=== PATIENT | male | born 1990 | race Caucasian/White ===

== ENCOUNTER 2020-02-19 13:30 | Emergency (ER) | payer SELFPAY ==
[2020-02-19 13:36] VITALS: BP 143/80; PULSE 112; RESP 20; TEMP 36.6; O2SAT 96; BMI 25.8
--- NOTE | 2020-02-19 13:45 | DI.RAD.S_ITS ---
PROCEDURE: XR CHEST 1V INDICATIONS: worsening asthma TECHNIQUE: One view of the chest was acquired. COMPARISON: None. FINDINGS: Surgical changes and devices: None. Lungs and pleura: Lungs are clear. No pleural effusions or pneumothorax. Mediastinum: Mediastinal contours appear normal. Heart size is normal. Bones and chest wall: No suspicious bony lesions. Overlying soft tissues appear unremarkable. IMPRESSION: Normal for age, source of current worsening asthma symptoms is not seen. Dictated by: Radames Velasquez M.D. on 02/19/2020 at 14:02 Approved by: Radames Velasquez M.D. on 02/19/2020 at 14:02
--- NOTE | 2020-02-19 13:51 | ED.SOB ---
HPI - SOB/Dyspnea <BRADLY Felton - Last Filed: 02/19/20 18:24> General Chief Complaint: Shortness of Breath/Dyspnea Stated Complaint: hx of asthma/asthma attack today Time Seen by Provider: 02/19/20 13:35 Source: patient Mode of arrival: Ambulatory Limitations: no limitations History of Present Illness HPI Narrative: 29yo male with a history of asthma and allergies, presents to the emergency department after being referred from the walk-in clinic for worsening wheezing. He takes Advair at home 250mg BID, an allergy pill daily, and his albuterol inhaler. He states the wheezing started a few days ago and has increased. He has used his nebulizer at home, reports using 2 DuoNebs, and has used his inhaler multiple times without significant relief. He states he has an occasional cough when he takes a deep breath. He denies any fevers, chest pain, productive cough, abdominal pain, nausea, vomiting, diarrhea, or any other concerns. Patient denies any contact with persons with confirm COVID-19 cases or any travel. Related Data Home Medications Medication Instructions Recorded Confirmed albuterol sulfate 90 mcg/actuation 1 puff INHALATION Q6H PRN 04/20/19 04/20/19 aerosol inhaler fexofenadine 60 mg tablet 60 mg PO Q12H 04/20/19 04/20/19 fluticasone 100 mcg-salmeterol 50 1 puff INHALATION BID 04/20/19 04/20/19 mcg/dose blistr powdr for inhalation Previous Rx's Medication Instructions Recorded amoxicillin 875 mg-potassium 1 tab PO BID #14 tab 04/20/19 clavulanate 125 mg tablet albuterol sulfate 2 puff INHALATION Q4-6H PRN #8.5 02/19/20 gram albuterol sulfate 2.5 mg INHALATION Q4-6H PRN #15 ml 02/19/20 prednisone 60 mg PO DAILY 5 Days #15 tab 02/19/20 Allergies Allergy/AdvReac Type Severity Reaction Status Date / Time No Known Drug Allergies Allergy Verified 02/19/20 13:46 Review of Systems <BRADLY Felton - Last Filed: 02/19/20 18:24> Review of Systems Narrative: REVIEW OF SYSTEMS: GENERAL: Denies fevers. HENT: No head trauma or hearing loss. EYES: No loss of vision, double vision, eye pain, irritation or discharge. CARDIOVASCULAR: No chest pain or syncope. RESPIRATORY Reports wheezing and shortness of breath, see HPI. GASTROINTESTINAL: No nausea, vomiting, diarrhea, or constipation. MUSCULOSKELETAL: No weakness or injury. INTEGUMENTARY: No rash, lesions, or pruritus. NEURO: No memory loss, or confusion. Patient History <BRADLY Felton - Last Filed: 02/19/20 18:24> Medical History Asthma (Acute) Social History Smoking Status: Former smoker Smoking Status: Former smoker alcohol intake frequency: a few times a week Substance Use Type: does not use Exam <BRADLY Felton - Last Filed: 02/19/20 18:24> Initial Vital Signs Initial Vital Signs: Vital Signs Temperature 97.9 F 02/19/20 13:36 Pulse Rate 112 H 02/19/20 13:36 Respiratory Rate 20 02/19/20 13:36 Blood Pressure 143/80 H 02/19/20 13:36 Pulse Oximetry 96 02/19/20 13:36 PHYSICAL EXAMINATION: GENERAL: Well groomed, alert, and cooperative. Answers questions promptly and appropriately. Vital signs noted. HENT: Normocephalic, atraumatic. Ear canals patent. TMs intact without mucus or erythema. Oropharynx without erythema. Tonsils are not present. EYES: Conjunctiva pink, sclera white, no periorbital swelling. No discharge. CHEST: Normal to inspection and without deformities. CARDIOVASCULAR: S1 and S2 sounds normal. Regular rate and rhythm, no murmurs, clicks, or bruits. RESPIRATORY: Normal respiratory rate, trachea midline, airway patent. No stridor, nasal flaring or accessory muscle use. Able to speak in full sentences. Mild inspiratory and significant expiratory wheezes, occasional dry cough throughout exam. No crackles or rhonchi. Patient is sitting up, leaning forward. Peak flow after treatment was 350. MUSCULOSKELETAL: Normal gait and coordination. Equal tone and mass bilaterally. EXTREMITIES: Moves all extremities. SKIN: Warm, dry, soft, appropriate color for ethnicity. No lesions, rashes, or wounds to visualized areas. NEURO: Alert and Oriented X 3. Good coordination. No ataxia or cognitive issues. PSYCH: Appropriate affect and mood. <Farida Orozco MD - Last Filed: 02/25/20 07:03> Initial Vital Signs Initial Vital Signs: Vital Signs Temperature 97.9 F 02/19/20 13:36 Pulse Rate 112 H 02/19/20 13:36 Respiratory Rate 20 02/19/20 13:36 Blood Pressure 143/80 H 02/19/20 13:36 Pulse Oximetry 96 02/19/20 13:36 Scores <BRADLY Felton - Last Filed: 02/19/20 18:24> PERC Score Age greater than or equal to 50 years: No Heart rate greater than or equal to 100 bpm: No Room Air O2 Sat less than 95%: No Unilateral leg swelling: No Recent trauma or surgery: No Hemoptysis: No Prior PE or DVT: No Hormone Use: No Total PERC Score: 0 Wells' Criteria for PE Clinical signs and symptoms of DVT: No PE is #1 Dx or equally likely: No Heart rate > 100: No Immobilization at least 3 days or surg in previous 4 weeks: No History of PE or DVT: No Hemoptysis: No Malignancy w/Treatment within 6 months or palliative: No Wells' PE Score total: 0 Course <BRADLY Felton - Last Filed: 02/19/20 18:24> Course Course Narrative: Patient was given a 10mg of albuterol duoneb in the emergency department for symptoms. Patient had significantly improved symptoms after albuterol and prednisone administration. He states ?I feel so much better. He was able to walk around the room without any distress. Patient states, feel like I can be discharged. Verbalizes understanding to return if symptoms worsen. Patient states he has stayed in the hospital due to asthma in the past, he states ?This started like 1 of my bad episodes but significantly improved, this does not feel like I need to stay in the hospital. Orders Ordered: Discontinued Medications Albuterol (Proventil 0.5% Neb Solution) 10 mg INH Q1H [facility] Last Admin: 02/19/20 14:31 Dose: 10 mg Documented by: MARLENY Albuterol/Ipratropium (Duoneb) 3 ml INH NOW ONE Stop: 02/19/20 13:47 Prednisone (Deltasone) 60 mg PO NOW ONE Stop: 02/19/20 13:56 Last Admin: 02/19/20 15:06 Dose: 60 mg Documented by: CHARLY Consultations Consultation #1: Patient staffed with Dr. Orozco. Vital Signs Vital signs: Vital Signs - 8 hr 02/19/20 13:36 02/19/20 14:32 02/19/20 14:43 Temperature 97.9 F Pulse Rate 112 H 82 69 Respiratory Rate 20 18 Blood Pressure 143/80 H Blood Pressure [Left Arm] 112/57 L Pulse Oximetry 96 98 95 02/19/20 16:15 Temperature Pulse Rate 104 H Respiratory Rate 20 Blood Pressure 122/63 Blood Pressure [Left Arm] Pulse Oximetry 95 <Farida Orozco MD - Last Filed: 02/25/20 07:03> Orders Ordered: Discontinued Medications Albuterol (Proventil 0.5% Neb Solution) 10 mg INH Q1H [facility] Last Admin: 02/19/20 14:31 Dose: 10 mg Documented by: MARLENY Albuterol/Ipratropium (Duoneb) 3 ml INH NOW ONE Stop: 02/19/20 13:47 Prednisone (Deltasone) 60 mg PO NOW ONE Stop: 02/19/20 13:56 Last Admin: 02/19/20 15:06 Dose: 60 mg Documented by: CHARLY Vital Signs Vital signs: Vital Signs - 8 hr 02/19/20 13:36 02/19/20 14:32 02/19/20 14:43 Temperature 97.9 F Pulse Rate 112 H 82 69 Respiratory Rate 20 18 Blood Pressure 143/80 H Blood Pressure [Left Arm] 112/57 L Pulse Oximetry 96 98 95 02/19/20 16:15 Temperature Pulse Rate 104 H Respiratory Rate 20 Blood Pressure 122/63 Blood Pressure [Left Arm] Pulse Oximetry 95 MDM - SOB/Dyspnea <BRADLY Felton - Last Filed: 02/19/20 18:24> Medical Records Attestation: I reviewed the patient's medical records. Lab Data Attestation: I reviewed the patient's lab results. Imaging Data Chest x-ray: Radiologist's Impression: [address] [address] XRay Report Signed Patient: Rickey Pedroza PMR#: [id number] : 1990Acct:[id number] Age/Sex: te of Service: 02/19/20 Loc: ED Accession Number: [id number] Procedure: XR chest 1V Ordering Provider: Vijaya Jones PROCEDURE: XR CHEST 1V INDICATIONS: worsening asthma TECHNIQUE: One view of the chest was acquired. COMPARISON: None. FINDINGS: Surgical changes and devices: None. Lungs and pleura: Lungs are clear. No pleural effusions or pneumothorax. Mediastinum: Mediastinal contours appear normal. Heart size is normal. Bones and chest wall: No suspicious bony lesions. Overlying soft tissues appear unremarkable. IMPRESSION: Normal for age, source of current worsening asthma symptoms is not seen. Dictated by: Radames Velasquez M.D. on 02/19/2020 at 14:02 Approved by: Radames Velasquez M.D. on 02/19/2020 at 14:02 [facility] Narrative Medical decision making narrative: 29-year-old male with a history of significant asthma and environmental allergies, presents emergency department for worsening wheezing after using inhaler and DuoNebs. After a 10 mg administration of albuterol and prednisone, patient states he is feeling much better and is ready to be discharged home. Patient still has mild wheezes on examination after medication, however, continues to have an adequate oxygen saturation, does not appear to be in distress, and can talk in full sentences without significant air hunger. He is able to move around the room without severe shortness of breath. Patient felt comfortable being discharged with strict return precautions. He was placed on a prednisone taper. Less concern for infectious etiology due to negative chest x-ray and no other symptoms such as fever, chest pain, abdominal pain, or productive cough. Did not meet criteria for COVID-19 screening at this time. Less likely PE due to history of asthma, decreased symptoms after a bit oral administration, and Negative PERC and well's criteria score. Patient was encouraged to follow with his primary care provider within the week for re-evaluation. Patient agreed to plan of care verbalized understanding. Discharge Plan Departure Patient Disposition: Home Clinical Impression: Acute asthma exacerbation Qualifiers: Asthma severity: moderate Asthma persistence: persistent Qualified Code(s): J45.41 - Moderate persistent asthma with (acute) exacerbation Discharge Date/Time: 02/19/20 16:15 Activity Restrictions/Additional Instructions: Thank you for entrusting me with your care today. As discussed, your chest x-ray is negative for any concerning findings such as pneumonia. It is possible that your symptoms may be worsening due to pollen in the air as it is allergy season. I have given you a prescription for prednisone, albuterol, and a duoneb, this was sent to [facility] in [place], you took your 1st dose today, please take this dose for the next 5 days. Follow up with your primary care provider in 1 week for further evaluation. Return to the emergency department for any new or worsening symptoms such as increased wheezing, worsening shortness of breath, chest pain, severe abdominal pain, high fevers, or any other concerns. Prescriptions: New prednisone 20 mg tablet 60 mg PO DAILY 5 Days Qty: 15 RF: 0 albuterol sulfate 90 mcg/actuation HFA aerosol inhaler 2 puff INHALATION Q4-6H PRN (Reason: shortness of breath or wheezing) Qty: 8.5 RF: 0 albuterol sulfate 2.5 mg /3 mL (0.083 %) solution for nebulization 2.5 mg INHALATION Q4-6H PRN (Reason: shortness of breath or wheezing) Qty: 15 RF: 0 No Action fexofenadine [Fabiana Allergy] 60 mg tablet 60 mg PO Q12H RF: 0 fluticasone propion-salmeterol [Advair Diskus] 100-50 mcg/dose blister with device 1 puff INHALATION BID RF: 0 albuterol sulfate [Ventolin HFA] 90 mcg/actuation HFA aerosol inhaler 1 puff INHALATION Q6H PRNRF: 0 amoxicillin-pot clavulanate [Augmentin] 875-125 mg tablet 1 tab PO BID Qty: 14 RF: 0 Referrals: Elizabeth Bundy PA-C [Primary Care Provider] -
[2020-02-19] MEDS: ALBUTEROL 0.5% CONTINUOUS NEB 10 MG INH (14:31)
[2020-02-19 14:32] VITALS: PULSE 82; O2SAT 98
[2020-02-19 14:43] VITALS: BP 112/57; PULSE 69; RESP 18; O2SAT 95
--- NOTE | 2020-02-19 14:44 | PC.NURSE ---
PT CURRENTLY HAVING NEBULIZER TREATMENT.
[2020-02-19] MEDS: predniSONE 20 MG TABLET 60 MG PO (15:06)
--- NOTE | 2020-02-19 16:14 | PC.NURSE ---
per ADELAIDA layP- peak flow 375 after neb.
[2020-02-19 16:15] VITALS: BP 122/63; PULSE 104; RESP 20; O2SAT 95
== END 2020-02-19 16:15 | disposition home or self-care (01) ==
PROVIDERS: Emergency Provider Nurse Practitioner; Family Provider Physician Assistant Medical; PCP Physician Assistant Medical
DX: J45.41 Moderate persistent asthma with (acute) exacerbation (principal)
CPT/HCPCS: 71045; 94150; 94640; 99283; 99284; J7611

== ENCOUNTER → 2025-06-25 11:28 | Outpatient (CLI) | payer OTHER, SELFPAY ==
[2025-06-25 12:30] LABS: Add Manual Diff / Slide Review NO; Hematocrit 42.9 % (41-53); Hemoglobin 14.6 g/dL (13.5-17.5); Lymphocytes Absolute Auto 1600 /uL (1100-4500); Mean Corpuscular HGB Conc 34.2 % (30-36); Mean Corpuscular Hemoglobin 30.9 PG (26-34); Mean Corpuscular Volume 90.4 fL (80-100); Platelet Count 235 X10^3/uL (150-400)
== END ==
PROVIDERS: Family Provider Physician Assistant Medical; PCP Physician Assistant Medical; Referring Provider Internal Medicine; Visit Provider Internal Medicine
DX: J45.50 Severe persistent asthma, uncomplicated (principal); Z91.09 Other allergy status, other than to drugs and biological substances
CPT/HCPCS: 36415; 82785; 85025; 86003